=== PATIENT | male | born 1990 | race Caucasian/White ===

== ENCOUNTER 2019-06-27 17:33 | Emergency (ER) | payer OTHER ==
[2019-06-27] MEDS ORDERED: EPINEPHrine 1 MG/ML AMP IM STA (17:48)
[2019-06-27] MEDS ORDERED: predniSONE 20 MG TABLET PO STA ×2 (17:48→19:46)
[2019-06-27] MEDS ORDERED: CETIRIZINE 10 MG TABLET PO STA (17:49)
--- NOTE | 2019-06-27 17:51 | ED Physician Documentation ---
History of Present Illness - Stated complaint Stated Complaint: STING ON NECK/REACTION - Chief complaint Chief Complaint: Allergic Rx - History obtained from History obtained from: Patient - History of Present Illness Timing: How many minutes ago (30) Pain level max: 0 Pain level now: 0 - Additonal information Additional information: Patient states that he was bit or stung by an insect today on the back of his neck. Has now broken out in a rash and his lips are swollen. States similar symptoms last year and was treated for potential anaphylaxis. No throat swelling. No difficulty breathing. Has not taken anything prior to arrival. Nothing makes it better or worse Review of Systems Constitutional: denies: Fever, Chills GI: denies: Vomiting, Diarrhea Musculoskeletal: denies: Neck pain, Back pain Neurologic: denies: Headache PD PAST MEDICAL HISTORY - Past Medical History Past Medical History: No - Past Surgical History Past Surgical History: No - Present Medications Home Medications: Ambulatory Orders Medication Instructions Recorded Confirmed EPINEPHrine [Epinephrine] 0.3 mg IJ ONCE PRN #1 auto.injct 06/27/19 predniSONE [Prednisone] 60 mg PO DAILY #3 tablet 06/27/19 - Allergies Allergies/Adverse Reactions: Allergies Allergy/AdvReac Type Severity Reaction Status Date / Time No Known Drug Allergies Allergy Verified 06/27/19 17:44 - Social History Does the pt smoke?: Yes Smoking Status: Current every day smoker PD ED PE NORMAL - Vitals Vital signs reviewed: Yes - General General: Alert and oriented X 3, No acute distress, Well developed/nourished - HEENT HEENT: PERRL, Moist mucous membranes, Pharynx benign (Normal oropharyngeal exam except for mild swelling to the lips) - Neck Neck: Supple, no meningeal sign - Cardiac Cardiac: RRR, Strong equal pulses - Respiratory Respiratory: No respiratory distress, Clear bilaterally - Abdomen Abdomen: Normal bowel sounds, Soft, Non tender, Non distended - Derm Derm: Warm and dry, Other (Diffuse urticaria) - Neuro Neuro: Alert and oriented X 3 - Psych Psych: Normal mood, Normal affect Results - Vitals Vitals: Vital Signs - 24 hr 06/27/19 06/27/19 06/27/19 17:40 18:14 18:30 Temperature 36.3 C L Heart Rate 104 H 74 74 Respiratory 18 23 16 Rate Blood Pressure 121/80 122/86 H 115/92 H O2 Saturation 95 98 98 06/27/19 06/27/19 19:00 19:30 Temperature Heart Rate 72 85 Respiratory 18 22 Rate Blood Pressure 112/74 122/89 H O2 Saturation 98 98 Oxygen O2 Source Room air PD MEDICAL DECISION MAKING - ED course Complexity details: re-evaluated patient, considered differential, d/w patient ED course: 29-year-old male presents to the emergency department after likely a wasp sting. Given epinephrine. Also given steroids and Zyrtec as he is driving. He was observed for several hours. Lip swelling resolved. No airway involvement. Still has urticaria but this is also resolving. Will prescribe steroids for home. We will also prescribe an epinephrine pen. Patient counseled regarding signs and symptoms for which I believe and urgent re-evaluation would be necessary. Patient with good understanding of and agreement to plan and is comfortable going home at this time This document was made in part using voice recognition software. While efforts are made to proofread this document, sound alike and grammatical errors may occur. Of note the prednisone prescription was for 9 pills, not 3 Departure - Departure Disposition: 01 Home, Self Care Clinical Impression: Allergic reaction Qualifiers: Encounter type: initial encounter Qualified Code(s): T78.40XA - Allergy, unspecified, initial encounter Condition: Good Instructions: ED Bite Sting Insect Gen Allergic React Follow-Up: your,doctor in 1 week [Other] Prescriptions: EPINEPHrine [Epinephrine] 0.3 mg IJ ONCE PRN #1 auto.injct PRN Reason: Anaphylaxis predniSONE [Prednisone] 60 mg PO DAILY #3 tablet Comments: Return if you worsen. Take all steroids until gone. Use the epinephrine pen if you need it, if you use the epinephrine pen this essentially buys you time to get to the hospital. You can take Benadryl 50 mg every 6-8 hours as well. Discharge Date/Time: 06/27/19 19:54
[2019-06-27 19:43] VITALS: BP 122/89
== END 2019-06-27 19:54 | disposition home or self-care (01) ==
LOC: ED 17:33
DX: T78.40XA Allergy, unspecified, initial encounter (principal); F17.200 Nicotine dependence, unspecified, uncomplicated
CPT/HCPCS: 96372; 99283; A9270; J7512